=== PATIENT | female | born 1975 | race Caucasian/White ===

== ENCOUNTER 2016-10-11 18:26 | Emergency (ER) | payer OTHER ==
[2016-10-11 18:51] VITALS: BP 119/69; PULSE 80; TEMP 97.6; BMI 21.2
[2016-10-11 20:34] LABS: URINE APPEARANCE CLEAR; URINE BILIRUBIN NEGATIVE (NEGATIVE); URINE COLOR LTYELLOW; URINE GLUCOSE (UA) NEGATIVE (NEGATIVE); URINE KETONE NEGATIVE (NEGATIVE); URINE LEUK ESTERASE NEGATIVE (NEGATIVE); URINE NITRITE POSITIVE (NEGATIVE); URINE PROTEIN NEGATIVE (NEGATIVE); URINE UROBILINOGEN NEGATIVE E.U./dl (0.2-1.0)
[2016-10-11 20:37] LABS: URINE BLOOD 1+ (NEGATIVE)
[2016-10-11 20:38] LABS: URINE BACTERIA RARE /hpf (NONE SEEN); URINE HYALINE CAST 1 /lpf; URINE MUCUS RARE; URINE RBC <1 /hpf (0-3); URINE WBC 3 /hpf (3-5)
[2016-10-11] MEDS ORDERED: ONDANSETRON *ODT* 4 MG TABLET SL ONE (20:47)
[2016-10-11] MEDS ORDERED: ONDANSETRON *ODT* 4 MG TABLET ONE (20:55)
== END 2016-10-11 21:06 | disposition left against medical advice (07) ==
LOC: JER 18:26
DX: Z53.21 Procedure and treatment not carried out due to patient leaving prior to being seen by health care provider (principal)
CPT/HCPCS: 81003; 81015; 84703; 99281-25

== ENCOUNTER 2016-11-04 09:09 | Emergency (ER) | payer OTHER ==
[2016-11-04 09:17] VITALS: BP 101/51; PULSE 85; TEMP 97.9; BMI 21.2
[2016-11-04] MEDS ORDERED: CYCLOBENZAPRINE HCL 10 MG TABLET (FP) PO ONE (09:40)
--- NOTE | 2016-11-04 09:46 | PDOC ---
History of Present Illness - General Chief Complaint: Chronic pain Stated Complaint: PAIN/ LT SHOULDER, NECK, MIGRAINES Time Seen by Provider: 11/04/16 09:37 History Source: Patient Exam Limitations: No Limitations - History of Present Illness Initial Comments: 11/04/16 09:41 41 yr female with chronic pain , left shoulder, migraines. Pt states she has chronic pain to left shoulder with tendonitis to her left shoulder and ran out of tramadol. Pt also c/o stiff neck. no fever no chest pain or back pain . Pt also c/o chronic migraine headache that is causing nausea today from the pain in her shoulder. no vomiting. 11/04/16 10:02 Occurred: reports: other (chronic pain left shoulder ) Severity: reports: moderate Upper Extremity Pain Location: left: shoulder Extremity Pain Location - Extremity Pain Location Extremity Pain Locations: left: other (shoulder) Past History - Past Medical History Allergies/Adverse Reactions: Allergies Allergy/AdvReac Type Severity Reaction Status Date / Time amoxicillin Allergy Mild Hives Verified 11/04/16 09:12 ibuprofen [From Motrin IB] Allergy Mild Hives Verified 11/04/16 09:12 morphine AdvReac Mild nausea/vomi Verified 11/04/16 09:12 ting codeine phosphate AdvReac gi upset Verified 11/04/16 09:12 [From Tylenol-Codeine] seafood Allergy Uncoded 11/04/16 09:12 Home Medications: Ambulatory Orders Citalopram Hydrobromide [Celexa -] 40 mg PO DAILY 10/04/14 Risperidone [Risperdal] 2 mg PO DAILY 10/04/14 Zolpidem Tartrate [Ambien] 5 mg PO HS PRN 10/04/14 Phenytoin Na Extended [Dilantin -] 100 mg PO TID 02/07/16 Alprazolam [Xanax] 2 mg PO BID 07/30/16 Omeprazole 40 mg PO DAILY 07/30/16 Cyclobenzaprine HCl [Flexeril -] 5 mg PO TID PRN #21 tablet 11/04/16 COPD: Yes GI Disorders: Yes (ulcer) HTN: No Psychiatric Problems: Yes (Bi-Polar,ANXIETY) Suicide Attempt (Hx): No Seizures: Yes - Surgical History Cholecystectomy: Yes - Immunization History Td Vaccination: Yes Immunization Up to Date: Yes - Psycho/Social/Smoking Cessation Hx Anxiety: No Suicidal Ideation: No Smoking Status: Yes Smoking History: Current every day smoker Years of Tobacco Use: 20 Have you smoked in the past 12 months: Yes Number of Cigarettes Smoked Daily: 20 Cigars Per Day: 0 Information on smoking cessation initiated: No 'Breaking Loose' booklet given: 10/11/16 Hx Alcohol Use: No Drug/Substance Use Hx: No Substance Use Type: None Hx Substance Use Treatment: No Review of Systems - Review of Systems Able to Perform ROS?: Yes Is the patient limited Urdu proficient: No Constitutional: No: Symptoms Reported HEENTM: Yes: Symptoms Reported, See HPI, Other (photphobia) Respiratory: No: Symptoms reported Cardiac (ROS): No: Symptoms Reported ABD/GI: No: Symptoms Reported : No: Symptoms Reported Musculoskeletal: Yes: See HPI Neurological: Yes: See HPI, Headache *Physical Exam - Vital Signs Last Vital Signs Temp Pulse Resp BP Pulse Ox 97.9 F 85 18 101/51 100 11/04/16 09:12 11/04/16 09:12 11/04/16 09:12 11/04/16 09:12 11/04/16 09:12 - Physical Exam General Appearance: Yes: Nourished, Appropriately Dressed HEENT: positive: EOMI, SILVIO, Normal ENT Inspection, TMs Normal, Pharynx Normal Neck: positive: Supple Respiratory/Chest: positive: Lungs Clear, Normal Breath Sounds Cardiovascular: positive: Regular Rhythm, Regular Rate Gastrointestinal/Abdominal: positive: Normal Bowel Sounds, Soft Musculoskeletal: positive: Normal Inspection, Muscle Spasm (laterally left side neck ). negative: Decreased Range of Motion Extremity: positive: Normal Capillary Refill, Normal Inspection, Other (limited ROM left shoudler due to pain, no bony tenderness, no crepitus or swelling, TTP anterior left shoulder at clavicular notch ) Integumentary: positive: Normal Color, Dry, Warm Neurologic: positive: Fully Oriented, Alert, Normal Mood/Affect, Normal Response , Motor Strength 5/5 Medical Decision Making - Medical Decision Making 11/04/16 09:44 cc: chronic left shoulder pain. chronic tendonitis left shoulder , history of migraines, current headache with nausea will give flexeril and reglan (for headache)follow up with your PMD for further eval of headaches refer to the ortho clinic at [facility] for chronic shoulder pain (pt has history of substance abuse (per old EMR. 11/04/16 10:02 pt agrees with plan of care, pt stable comfortable drinking can of Pepsi cola on discharge, no distress, steady gait. 11/04/16 15:04 11/04/16 15:05 *DC/Admit/Observation/Transfer Diagnosis at time of Disposition: Muscle spasm Shoulder pain, left Qualifiers: Chronicity: chronic Qualified Code(s): M25.512 - Pain in left shoulder Headache Qualifiers: Headache type: tension-type Headache chronicity pattern: chronic headache Intractability: not intractable Qualified Code(s): G44.229 - Chronic tension- type headache, not intractable - Discharge Dispostion Disposition: HOME Condition at time of disposition: Good - Prescriptions Prescriptions: Cyclobenzaprine HCl [Flexeril -] 5 mg PO TID PRN #21 tablet PRN Reason: Muscle Spasms - Referrals Referrals: Marta Urrutia [Primary Care Provider] - - Patient Instructions Additional Instructions: take flexeril as directed for muscle spasm with tylenol together for pain follow with the orthopedic clinic at [facility] for follow up BARRERA ([phone]) take flexeril as directed for muscle spasm apply warm compresses to the area of pain go home and rest in dark room quite room drink at least 2 liters of water daily to help with headaches follow with your doctor [phone] ([phone])
[2016-11-04] MEDS ORDERED: METOCLOPRAMIDE HCL 10 MG TABLET (FP) PO ONE ×2 (09:56→10:01)
[2016-11-04] MEDS ORDERED: CYCLOBENZAPRINE HCL 10 MG TABLET (FP) ONE (10:01)
== END 2016-11-04 10:09 | disposition home or self-care (01) ==
LOC: JERFT 09:09
DX: M62.838 Other muscle spasm (principal); M25.512 Pain in left shoulder; G44.229 Chronic tension-type headache, not intractable; J44.9 Chronic obstructive pulmonary disease, unspecified; F31.9 Bipolar disorder, unspecified; F41.9 Anxiety disorder, unspecified; F17.210 Nicotine dependence, cigarettes, uncomplicated
CPT/HCPCS: 99281-25

== ENCOUNTER 2017-03-11 18:18 | Emergency (ER) | payer OTHER ==
[2017-03-11 18:23] VITALS: BMI 22.3
[2017-03-11] MEDS ORDERED: SUCRALFATE 1 GM TABLET (FP) PO STA (20:03)
[2017-03-11] MEDS ORDERED: ONDANSETRON *ODT* 4 MG TABLET SL ONE (20:03)
--- NOTE | 2017-03-11 20:03 | PDOC ---
History of Present Illness - General History Source: Patient <Candido Zuniga - Last Filed: 03/11/17 20:41> - General History Source: Patient Exam Limitations: No Limitations - History of Present Illness Initial Comments: 03/11/17 20:56 The patient is a 41 year old female, with a significant past medical history of peptic ulcer disease, hypertension, COPD, seizures, bipolar disorder, and anxiety, who presents to the emergency department complaining of epigastric pain for approximately 2 days. She reports her pain is constant and nonradiating in natures. She states the pain is similar to the peptic ulcer pain she has had in the past. She reports she has been taking Omeprazole with no relief. She reports associated nausea, but no vomiting, diarrhea, or constipation. She denies any fever or chills. She denies any dysuria, hematuria , frequency, or urgency. She denies any chest pain, shortness of breath, diaphoresis, or palpitations. Allergies: Amoxicillin, Morphine, Ibuprofen, Codeine Phosphate, Seafood Past Surgical History: Cholecystectomy Social History: Current everyday smoker. Denies alcohol or drug use. PCP: Dr. Marta Urrutia <Margie Singer - Last Filed: 03/11/17 20:57> - General Chief Complaint: Pain, Acute Stated Complaint: NAUSEA/VOMITING Time Seen by Provider: 03/11/17 19:55 Past History - Past Medical History COPD: Yes GI Disorders: Yes (ulcer) HTN: No Psychiatric Problems: Yes (Bi-Polar,ANXIETY) Suicide Attempt (Hx): No Seizures: Yes - Surgical History Abdominal Surgery: Yes Cholecystectomy: Yes - Immunization History Td Vaccination: Yes Immunization Up to Date: Yes - Psycho/Social/Smoking Cessation Hx Anxiety: Yes Suicidal Ideation: No Smoking Status: Yes Smoking History: Current every day smoker Years of Tobacco Use: 20 Have you smoked in the past 12 months: Yes Number of Cigarettes Smoked Daily: 20 Cigars Per Day: 0 Information on smoking cessation initiated: No 'Breaking Loose' booklet given: 10/11/16 Hx Alcohol Use: No Drug/Substance Use Hx: No Substance Use Type: None Hx Substance Use Treatment: No <Candido Zuniga - Last Filed: 03/11/17 20:41> <Margie Singer - Last Filed: 03/11/17 20:57> - Past Medical History Allergies/Adverse Reactions: Allergies Allergy/AdvReac Type Severity Reaction Status Date / Time amoxicillin Allergy Mild Hives Verified 03/11/17 18:21 ibuprofen [From Motrin IB] Allergy Mild Hives Verified 03/11/17 18:21 morphine AdvReac Mild nausea/vomi Verified 03/11/17 18:21 ting codeine phosphate AdvReac gi upset Verified 03/11/17 18:21 [From Tylenol-Codeine] seafood Allergy Uncoded 03/11/17 18:21 Home Medications: Ambulatory Orders Citalopram Hydrobromide [Celexa -] 40 mg PO DAILY 10/04/14 Risperidone [Risperdal] 2 mg PO DAILY 10/04/14 Zolpidem Tartrate [Ambien] 5 mg PO HS PRN 10/04/14 Phenytoin Na Extended [Dilantin -] 100 mg PO TID 02/07/16 Alprazolam [Xanax] 2 mg PO BID 07/30/16 Omeprazole 40 mg PO DAILY 07/30/16 Cyclobenzaprine HCl [Flexeril -] 5 mg PO TID PRN #21 tablet 11/04/16 Ondansetron [Zofran *Odt*] 4 mg SL TID #30 od.tablet 03/11/17 Sucralfate [Carafate -] 1 gm PO QID #60 tablet 03/11/17 Review of Systems - Review of Systems Able to Perform ROS?: Yes Comments:: 03/11/17 20:56 CONSTITUTIONAL: Absent: fever, no chills, no fatigue EYES: Absent: visual changes ENT: Absent: ear pain, no sore throat CARDIOVASCULAR: Absent: chest pain, no palpitations RESPIRATORY: Absent: cough, no SOB GI: Present: +Epigastric pain, +nausea Absent: no vomiting, no constipation, no diarrhea GENITOURINARY: Absent: dysuria, no frequency, no hematuria MUSCULOSKELETAL: Absent: back pain, no arthralgia, no myalgia SKIN: Absent: rash NEURO: Absent: headache <Singer,Giomilsy - Last Filed: 03/11/17 20:57> *Physical Exam - Vital Signs Last Vital Signs Temp Pulse Resp BP Pulse Ox 97.6 F 100 H 20 115/93 100 03/11/17 18:20 03/11/17 18:20 03/11/17 18:20 03/11/17 18:20 03/11/17 18:20 <Candido Zuniga - Last Filed: 03/11/17 20:41> - Vital Signs Last Vital Signs Temp Pulse Resp BP Pulse Ox 97.6 F 100 H 20 115/93 100 03/11/17 18:20 03/11/17 18:20 03/11/17 18:20 03/11/17 18:20 03/11/17 18:20 - Physical Exam Comments: 03/11/17 20:57 GENERAL: Well-appearing, well-nourished. No apparent distress. HEENT: Normocephalic, atraumatic. PERRL, EOM intact. CARDIOVASCULAR: Normal S1, S2. Regular rate and rhythm. PULMONARY: Clear to auscultation bilaterally. ABDOMEN: Mild Epigastric tenderness. Soft, non-distended. EXTREMITIES: Normal ROM in all four extremities. No gross deformities. SKIN: Warm, dry. No rash NEUROLOGICAL: No focal neurological deficits. <Margie Singer - Last Filed: 03/11/17 20:57> ED Treatment Course - Medications Given in the ED: ED Medications Discontinued Medications Generic Name Dose Route Start Last Admin Trade Name Freq PRN Reason Stop Dose Admin Ondansetron HCl 4 mg 03/11/17 20:03 03/11/17 20:11 Zofran Odt - SL 03/11/17 20:04 4 mg ONCE ONE Administration Sucralfate 1 gm 03/11/17 20:03 03/11/17 20:11 Carafate - PO 03/11/17 20:04 1 gm BID STA Administration <Margie Singer - Last Filed: 03/11/17 20:57> Medical Decision Making - Medical Decision Making 03/11/17 20:40 Dr. Zuniga: The scribe's documentation has been prepared under my direction and personally reviewed by me in its entirery. I confirm that the note above accurately reflects all work, treatment, procedures, and medical decision making performed by me. <Candido Zuniga - Last Filed: 03/11/17 20:41> *DC/Admit/Observation/Transfer - Discharge Dispostion Admit: No <Candido Zuniga - Last Filed: 03/11/17 20:41> - Attestations Scribe Attestion: 03/11/17 20:57 Documentation prepared by Margie Singer, acting as medical office rep for Candido Zuniga DO. <Margie Singer - Last Filed: 03/11/17 20:57> Diagnosis at time of Disposition: Epigastric abdominal pain, PUD (peptic ulcer disease) - Discharge Dispostion Disposition: HOME Condition at time of disposition: Stable - Prescriptions Prescriptions: Sucralfate [Carafate -] 1 gm PO QID #60 tablet Ondansetron [Zofran *Odt*] 4 mg SL TID #30 od.tablet - Referrals Referrals: Marta Urrutia [Primary Care Provider] - Philip Temple MD [Staff Physician] - - Patient Instructions Printed Discharge Instructions: DI for Peptic Ulcer
[2017-03-11] MEDS ORDERED: ONDANSETRON *ODT* 4 MG TABLET ONE (20:09)
[2017-03-11] MEDS ORDERED: SUCRALFATE 1 GM TABLET (FP) ONE (20:09)
[2017-03-11] MEDS: MAG HYDROX/AL HYDROX/SIMETH 30 ML UNIT-DOSE CUP PO ONE ×2 (20:40→21:15)
[2017-03-11 23:00] VITALS: BP 120/87; PULSE 96; TEMP 97.8
== END 2017-03-11 21:00 | disposition home or self-care (01) ==
LOC: JER 18:18 → SUPCPDRO 18:18 → JER 21:00
DX: K27.9 Peptic ulcer, site unspecified, unspecified as acute or chronic, without hemorrhage or perforation (principal); I10 Essential (primary) hypertension; J44.9 Chronic obstructive pulmonary disease, unspecified; G40.909 Epilepsy, unspecified, not intractable, without status epilepticus; F31.9 Bipolar disorder, unspecified; F41.9 Anxiety disorder, unspecified
CPT/HCPCS: 99282-25

== ENCOUNTER 2018-07-26 01:14 | Emergency (ER) | payer OTHER ==
[2018-07-26] MEDS ORDERED: ACETAMINOPHEN 325 MG TABLET (FP) PO ONE (01:45)
[2018-07-26] MEDS ORDERED: ALBUTEROL SO4 2.5/IPRATROPIUM 0.5 INH SOL 3 ML VIAL.NEB. NEB ONE ×2 (01:45→02:18)
[2018-07-26 01:53] VITALS: BP 118/82; PULSE 85; TEMP 98.1; BMI 24.7
--- NOTE | 2018-07-26 01:59 | PDOC ---
History of Present Illness - General Chief Complaint: Cold Symptoms Stated Complaint: PRODUCTIVE COUGH Time Seen by Provider: 07/26/18 01:31 History Source: Patient Exam Limitations: No Limitations - History of Present Illness Initial Comments: 07/26/18 01:53 Patient is a 42F with history of COPD, bipolar disorder, seizures, here today complaining of cough with white productive sputum for the past day. Denies fevers, chills. Endorses sore throat. Denies chest pain, nausea, vomiting. Denies leg swelling, abdominal pain. No sick contacts. No flu shot this year. No history of intubation or hospitalization for COPD. Past History - Past Medical History Allergies/Adverse Reactions: Allergies Allergy/AdvReac Type Severity Reaction Status Date / Time amoxicillin Allergy Mild Hives Verified 07/26/18 01:53 ibuprofen [From Motrin IB] Allergy Mild Hives Verified 07/26/18 01:53 morphine AdvReac Mild nausea/vomi Verified 07/26/18 01:53 ting codeine phosphate AdvReac gi upset Verified 07/26/18 01:53 [From Tylenol-Codeine] seafood Allergy Uncoded 07/26/18 01:53 Home Medications: Ambulatory Orders Citalopram Hydrobromide [Celexa -] 40 mg PO DAILY 10/04/14 Risperidone [Risperdal] 2 mg PO DAILY 10/04/14 Zolpidem Tartrate [Ambien] 5 mg PO HS PRN 10/04/14 Phenytoin Na Extended [Dilantin -] 100 mg PO TID 02/07/16 Omeprazole 40 mg PO DAILY 07/30/16 Cyclobenzaprine HCl [Flexeril -] 5 mg PO TID PRN #21 tablet 11/04/16 Acetaminophen/Caffeine/Butalb [Fioricet -] 1 tab PO Q6H 06/27/17 Aspirin/Acetaminophen/Caffeine [Excedrin Migraine Caplet] 1 each PO ASDIR Metoprolol Tartrate 25 mg PO DAILY 08/21/17 Prednisone [Prednisone 50 MG TABLETS] 50 mg PO DAILY #5 tablet 07/26/18 COPD: Yes GI Disorders: Yes (ulcer) HTN: No Psychiatric Problems: Yes (Bi-Polar,ANXIETY) Seizures: Yes - Surgical History Abdominal Surgery: Yes Cholecystectomy: Yes - Immunization History Td Vaccination: Yes Immunization Up to Date: Yes - Suicide/Smoking/Psychosocial Hx Smoking Status: Yes Smoking History: Current every day smoker Years of Tobacco Use: 20 Have you smoked in the past 12 months: Yes Number of Cigarettes Smoked Daily: 20 Cigars Per Day: 0 'Breaking Loose' booklet given: 10/11/16 Hx Alcohol Use: No Drug/Substance Use Hx: No Substance Use Type: None Hx Substance Use Treatment: No Review of Systems - Review of Systems Comments:: 07/26/18 01:59 GENERAL/CONSTITUTIONAL: No fever or chills. No weakness. HEAD, EYES, EARS, NOSE AND THROAT: No change in vision. No ear pain or discharge. No sore throat. CARDIOVASCULAR: No chest pain or shortness of breath RESPIRATORY:+cough, no wheezing, or hemoptysis. GASTROINTESTINAL: No nausea, vomiting, diarrhea or constipation. GENITOURINARY: No dysuria, frequency, or change in urination. MUSCULOSKELETAL: No joint or muscle swelling or pain. No neck or back pain. SKIN: No rash NEUROLOGIC: No headache, vertigo, loss of consciousness, or change in strength/ sensation. ENDOCRINE: No increased thirst. No abnormal weight change HEMATOLOGIC/LYMPHATIC: No anemia, easy bleeding, or history of blood clots. ALLERGIC/IMMUNOLOGIC: No hives or skin allergy. *Physical Exam - Physical Exam Comments: 07/26/18 01:59 GENERAL: Awake, alert, and fully oriented, in no acute distress HEAD: No signs of trauma, normocephalic, atraumatic EYES: PERRLA, EOMI, sclera anicteric, conjunctiva clear ENT: Auricles normal inspection, hearing grossly normal, nares patent, oropharynx erythematous without exudate. NECK: Normal ROM, supple, no lymphadenopathy, JVD, or masses LUNGS: No distress, speaks full sentences, scattered wheezes bilaterally HEART: Regular rate and rhythm, normal S1 and S2, no murmurs, rubs or gallops, peripheral pulses normal and equal bilaterally. ABDOMEN: Soft, nontender, normoactive bowel sounds. No guarding, no rebound. No masses EXTREMITIES: Normal inspection, Normal range of motion, no edema. No clubbing or cyanosis. NEUROLOGICAL: Cranial nerves II through XII grossly intact. Normal speech, normal gait, no focal sensorimotor deficits SKIN: Warm, Dry, normal turgor, no rashes or lesions noted. ED Treatment Course - RADIOLOGY Radiology Studies Ordered: Category Date Time Status CHEST PA & LAT [RAD] Stat Radiology 07/26/18 01:45 Ordered Medical Decision Making - Medical Decision Making 07/26/18 02:00 Patient is 42F with history of COPD, bipolar disorder, and seizures here today with cough. Vitals normal and stable. DDx includes, but is not limited to: viral pharyngitis, COPD exacerbation, pneumonia. Patient appears well but is coughing. Strep considered, not likely given symptomology and age of patient. Flu considered, not likely without fever, bodyaches. Will evaluate with cxr. Will treat with prednisone, duoneb, tylenol. Likely discharge home. 07/26/18 02:47 CXR clear. Will discharge home with return precautions. Improved after duoneb. *DC/Admit/Observation/Transfer Diagnosis at time of Disposition: URI (upper respiratory infection), COPD exacerbation - Discharge Dispostion Disposition: HOME Condition at time of disposition: Good - Prescriptions Prescriptions: Prednisone [Prednisone 50 MG TABLETS] 50 mg PO DAILY #5 tablet - Referrals Referrals: Duke Doss [Primary Care Provider] - - Patient Instructions Printed Discharge Instructions: DI for Chronic Obstructive Pulmonary Disease, DI for Viral Upper Respiratory Infection -- Adult, Smoking Cessation Additional Instructions: Please call your primary care doctor tomorrow to setup an appointment. Please return if you have any new, worsening or concerning symptoms, especially fever, chills, and increasing shortness of breath. - Post Discharge Activity
[2018-07-26] MEDS ORDERED: predniSONE 20 MG TABLET (UD) ONE (02:17)
[2018-07-26] MEDS ORDERED: ACETAMINOPHEN 325 MG TABLET (FP) ONE (02:17)
[2018-07-26] MEDS ORDERED: predniSONE 10 MG TABLET (UD) ONE (02:18)
[2018-07-26] MEDS ORDERED: predniSONE 20 MG TABLET (UD) PO ONE (02:20)
[2018-07-26] MEDS ORDERED: ONDANSETRON *ODT* 4 MG TABLET SL ONE (02:23)
[2018-07-26] MEDS ORDERED: ONDANSETRON *ODT* 4 MG TABLET ONE (02:29)
--- NOTE | 2018-07-26 02:58 | PDOC ---
Attending Attestation - Resident Resident Name: Hank Ho - ED Attending Attestation I have performed the following: I have examined & evaluated the patient, The case was reviewed & discussed with the resident, I agree w/resident's findings & plan - HPI HPI: 07/26/18 02:56 42 YOF with GERD and COPD, current smoker presenting with nasal congestion, productive white cough x 1 day. no sick contacts or travel. uses albuterol inhaler as needed.. no f/c, cp, ap, n/v/d, woo or dizziness. - Physicial Exam PE: 07/26/18 02:57 NAD, well appearing, MMM, nl conjunctiva, anicteric; neck supple. lungs clear, RRR, abdomen soft nontender. LOMAS x4, no focal neuro deficits. No peripheral edema. normal color for ethnicity, WWP. - Medical Decision Making 07/26/18 02:57 DDx. COPD exacerbation, pneumonia, viral syndrome, URI. Vital signs reviewed, wnl. no respiratory distress. CXR_clear. no infiltrate or edema or effusion ED course: no acute events, remained stable and well appearing. Clinically improved after interventions, including duoneb, steroids. no indication for abx for now, as no cxr findings or systemic findings. smoking cessation advised. albuterol inhaler use Q4-6 hr as needed for cough sx. hydration and saline gargles, humidifier. Dispo: Pt to be discharged in stable condition. Patient made aware of impression and plan, return precautions discussed (including but not limited to worsening pain or symptoms), fevers, or signs of infection, chest pain, respiratory distress, inability to tolerate oral intake, dehydration, syncope, or neurologic changes). Follow up with PMD as recommended, follow up information provided, take medications as instructed for duration of time. continue with supportive care, avoid triggers and precipitants. All questions answered to patient's satisfaction and expressed understanding and comfort with this. 07/26/18 05:03
[2018-07-26] MEDS ORDERED: predniSONE 20 MG TABLET (UD) PO SCH (10:00)
== END 2018-07-26 03:04 | disposition home or self-care (01) ==
LOC: JER 01:14
PROC: 3E0F7GC Introduction of Other Therapeutic Substance into Respiratory Tract, Via Natural or Artificial Opening (ICD-10-PCS; principal; 2018-07-26)
DX: J44.1 Chronic obstructive pulmonary disease with (acute) exacerbation (principal); J06.9 Acute upper respiratory infection, unspecified; F41.9 Anxiety disorder, unspecified; F31.9 Bipolar disorder, unspecified; G40.909 Epilepsy, unspecified, not intractable, without status epilepticus; F17.210 Nicotine dependence, cigarettes, uncomplicated
CPT/HCPCS: 71046-TC-FY; 94640; 99281-25; Q0162

== ENCOUNTER 2018-07-26 21:30 | Emergency (ER) | payer OTHER ==
--- NOTE | 2018-07-26 22:04 | PDOC ---
History of Present Illness - General History Source: Patient Exam Limitations: No Limitations - History of Present Illness Initial Comments: 07/26/18 23:03 The patient is a 42 year old female brought in by EMS with a past medical history of COPD, seizure, ulcer, and bipolar disorder who presents to the emergency department for evaluation of dizziness and coughing. Patient reports feeling dizzy after standing up to put her pants on which prompted her to activate EMS. She reports associated symptoms of chest pain, palpitations persistent cough, worsening headache, and 3 episodes of emesis over the course of the day. Of note, the patient had her last breathing treatment 3 hours ago and was saturating on 100% room air. The patient was evaluated in the emergency department yesterday for COPD exacerbation and had a chest x-ray which showed no infiltrates. Patient was prescribed Prednisone which she picked up today. She states after her d/c she made an appointment to see her PCP this Wednesday. The patient denies dizziness, fevers, chills, nausea, diarrhea, constipation, and any urinary issues. Allergies: amoxicillin, ibuprofen, morphine, codeine Social History: Current everyday smoker. No reported alcohol or drug use. Surgical History: Cholecystectomy PCP: Dr. Duke Doss <Chantelle Del Toro - Last Filed: 07/26/18 23:03> <Sharri Mckinney - Last Filed: 07/27/18 01:39> - General Chief Complaint: Cold Symptoms Stated Complaint: COUGH Time Seen by Provider: 07/26/18 22:03 Past History <Chantelle Del Toro - Last Filed: 07/26/18 23:03> - Past Medical History COPD: Yes GI Disorders: Yes (ulcer) HTN: No Psychiatric Problems: Yes (Bi-Polar,ANXIETY) Seizures: Yes - Surgical History Abdominal Surgery: Yes Cholecystectomy: Yes - Immunization History Td Vaccination: Yes Immunization Up to Date: Yes - Suicide/Smoking/Psychosocial Hx Smoking Status: Yes Smoking History: Current every day smoker Years of Tobacco Use: 20 Have you smoked in the past 12 months: Yes Number of Cigarettes Smoked Daily: 20 Cigars Per Day: 0 'Breaking Loose' booklet given: 10/11/16 Hx Alcohol Use: No Drug/Substance Use Hx: No Substance Use Type: None Hx Substance Use Treatment: No <Sharri Mckinney - Last Filed: 07/27/18 01:39> - Past Medical History Allergies/Adverse Reactions: Allergies Allergy/AdvReac Type Severity Reaction Status Date / Time amoxicillin Allergy Mild Hives Verified 07/26/18 23:05 ibuprofen [From Motrin IB] Allergy Mild Hives Verified 07/26/18 23:05 morphine AdvReac Mild nausea/vomi Verified 07/26/18 23:05 ting codeine phosphate AdvReac gi upset Verified 07/26/18 23:05 [From Tylenol-Codeine] seafood Allergy Uncoded 07/26/18 23:05 Home Medications: Ambulatory Orders Citalopram Hydrobromide [Celexa -] 40 mg PO DAILY 10/04/14 Risperidone [Risperdal] 2 mg PO DAILY 10/04/14 Zolpidem Tartrate [Ambien] 5 mg PO HS PRN 10/04/14 Phenytoin Na Extended [Dilantin -] 100 mg PO TID 02/07/16 Omeprazole 40 mg PO DAILY 07/30/16 Cyclobenzaprine HCl [Flexeril -] 5 mg PO TID PRN #21 tablet 11/04/16 Acetaminophen/Caffeine/Butalb [Fioricet -] 1 tab PO Q6H 06/27/17 Aspirin/Acetaminophen/Caffeine [Excedrin Migraine Caplet] 1 each PO ASDIR Metoprolol Tartrate 25 mg PO DAILY 08/21/17 Prednisone [Prednisone 50 MG TABLETS] 50 mg PO DAILY #5 tablet 07/26/18 Review of Systems - Review of Systems Able to Perform ROS?: Yes Comments:: CONSTITUTIONAL: Absent: fever, chills, diaphoresis, generalized weakness, malaise, loss of appetite HEENT: Absent: rhinorrhea, nasal congestion, throat pain, throat swelling, difficulty swallowing, mouth swelling, ear pain, eye pain, visual Changes CARDIOVASCULAR: (+)chest pain. (+)palpitations. (+)dizziness. Absent: chest pain, syncope, irregular heart rate, peripheral edema RESPIRATORY: (+)cough. Absent: shortness of breath, dyspnea with exertion, orthopnea, wheezing, stridor , hemoptysis GASTROINTESTINAL: Absent: abdominal pain, abdominal distension, nausea, vomiting, diarrhea, constipation, melena, hematochezia GENITOURINARY: Absent: dysuria, frequency, urgency, hesitancy, hematuria, flank pain, genital pain MUSCULOSKELETAL: Absent: myalgia, arthralgia, joint swelling SKIN: Absent: rash, itching, pallor HEMATOLOGIC/IMMUNOLOGIC: Absent: easy bleeding, easy bruising, lymphadenopathy, frequent infections ENDOCRINE: Absent: unexplained weight gain, unexplained weight loss, heat intolerance, cold intolerance NEUROLOGIC: (+)headache Absent: focal weakness or paresthesias, dizziness, unsteady gait, seizure, mental status changes, bladder or bowel incontinence PSYCHIATRIC: Absent: anxiety, depression, suicidal or homicidal ideation, hallucinations. <Chantelle Del Toro - Last Filed: 07/26/18 23:03> *Physical Exam - Vital Signs Last Vital Signs Temp Pulse Resp BP Pulse Ox 98.4 F 87 20 120/70 100 07/26/18 22:20 07/26/18 22:20 07/26/18 22:20 07/26/18 22:20 07/26/18 22:20 - Physical Exam Comments: GENERAL: (+)Anxious and tearful. HEENT: Normocephalic, atraumatic. PERRLA, EOMI. No conjunctival pallor. Sclera are non- icteric. Moist mucous membranes. Oropharynx is clear. NECK: Supple. Full ROM. No JVD. Carotid pulses 2+ and symmetric, without bruits. No thyromegaly. No lymphadenopathy. CARDIOVASCULAR: Regular rate and rhythm. No murmurs, rubs, or gallops. PULMONARY: (+)Scant wheeze, good air movement in lung mao ABDOMINAL: Flat. Non-tender. No rebound or guarding. No organomegaly. Normoactive bowel sounds. MUSCULOSKELETAL Normal range of motion at all joints. No bony deformities or tenderness. No CVA tenderness. EXTREMITIES: No cyanosis. No clubbing. No edema. No calf tenderness. SKIN: Warm and dry. Normal capillary refill. No rashes. No jaundice. NEUROLOGICAL: Alert, awake, appropriate. Cranial nerves 2-12 intact. No deficits to light touch and temperature in face, upper extremities and lower extremities. No motor deficits in the in face, upper extremities and lower extremities. Normoreflexic in the upper and lower extremities. Normal speech. Toes are down- going bilaterally. Gait is normal without ataxia. PSYCHIATRIC: (+)Anxious. <Chantelle Del Toro - Last Filed: 07/26/18 23:03> ED Treatment Course - Medications Given in the ED: ED Medications Discontinued Medications Generic Name Dose Route Start Last Admin Trade Name Franchesca PRN Reason Stop Dose Admin Acetaminophen 650 mg 07/26/18 22:35 07/26/18 22:58 Tylenol - PO 07/26/18 22:36 650 mg ONCE ONE Administration Guaifenesin 10 ml 07/26/18 22:35 07/26/18 22:58 Robitussin - PO 07/26/18 22:36 10 ml ONCE ONE Administration Ondansetron HCl 4 mg 07/26/18 22:35 07/26/18 22:59 Zofran Injection IVPUSH 07/26/18 22:36 4 mg ONCE ONE Administration <Chantelle Del Toro - Last Filed: 07/26/18 23:03> - LABORATORY CBC & Chemistry Diagram: 07/26/18 22:50 07/26/18 22:50 <Sharri Mckinney - Last Filed: 07/27/18 01:39> Medical Decision Making - Medical Decision Making 07/26/18 23:50 42-year-old female presents tonight with multiple complaints. Patient was seen last evening in this emergency department for coughing and had a chest x-ray that was essentially negative. She was treated for a COPD exacerbation and a prescription for prednisone was sent to her [place] pharmacy. She did call her Dr. Duke Doss and has an appointment to see him this Wednesday. The patient said that this is an anniversary of her mother's , she said that she has migraines and her migraines have been bothering her today. She took Fioricet for her migraine. She also states she felt dizzy when she stood up to get dressed, the cough has persisted, she said she vomited 3 times and she had palpitations She is in no acute respiratory distress. Pulse ox is 100% on room air. She has a benign abdominal exam. She's had no further vomiting while in the emergency department 07/27/18 00:26 07/27/18 00:26 in reviewing her labs ,she does have a leukocytosis which I feel is due to her steroid use yesterday and today 07/27/18 01:34 Patient's migraine went away with Reglan and Benadryl. Her lungs are clear to auscultation. She has a benign abdominal exam and has no nausea at this time or any abdominal pain. Impression recurrent migraines, COPD with Tachycardia and Anxiety <Sharri Mckinney - Last Filed: 07/27/18 01:39> *DC/Admit/Observation/Transfer - Attestations Scribe Attestion: Documentation prepared by Chantelle Del Toro, acting as medical corps officer for Sharri Mckniney MD. <Chantelle Del Toro - Last Filed: 07/26/18 23:03> <Sharri Mckinney - Last Filed: 07/27/18 01:39> Diagnosis at time of Disposition: Anxiety attack Migraine Qualifiers: Migraine type: without aura Status migrainosus presence: without status migrainosus Intractability: not intractable Qualified Code(s): G43.009 - Migraine without aura, not intractable, without status migrainosus Vomiting Qualifiers: Vomiting type: unspecified Vomiting Intractability: non-intractable Nausea presence: with nausea Qualified Code(s): R11.2 - Nausea with vomiting, unspecified - Discharge Dispostion Disposition: HOME Condition at time of disposition: Stable - Referrals Referrals: Duke Doss [Primary Care Provider] - - Patient Instructions Printed Discharge Instructions: DI for Migraine, DI for Cough -- Adult, DI for Anxiety -- Adult Additional Instructions: please use your medicaitons at home if you have wheezing take your headache medicine as needed Keep your Wednesday appointment with your doctor
[2018-07-26] MEDS ORDERED: ONDANSETRON 4 MG/2 ML VIAL IVPUSH ONE (22:35)
[2018-07-26] MEDS ORDERED: guaiFENesin 200 MG/10 ML 10 ML UNIT-DOSE CUPS PO ONE (22:35)
[2018-07-26] MEDS ORDERED: ACETAMINOPHEN 325 MG TABLET (FP) PO ONE (22:35)
[2018-07-26] MEDS ORDERED: guaiFENesin 200 MG/10 ML 10 ML UNIT-DOSE CUPS ONE (22:41)
[2018-07-26] MEDS ORDERED: ACETAMINOPHEN 325 MG TABLET (FP) ONE (22:41)
[2018-07-26] MEDS ORDERED: ONDANSETRON 4 MG/2 ML VIAL ONE (22:41)
[2018-07-26 23:05] VITALS: BMI 24.7
[2018-07-26 23:16] LABS: BASO % 0.4 % (0-2.0); HEMATOCRIT 35.2 % (32.4-45.2); HEMOGLOBIN 11.6 GM/dL (10.7-15.3); LYMPH % 13.7 % (8-40); MCH 29.7 pg (25.7-33.7); MCHC 32.8 g/dl (32.0-36.0); MEAN CELL VOLUME 90.7 fl (80-96); MEAN PLT VOLUME 7.8 fl (7.5-11.1); MONO % 7.1 % (3.8-10.2); NEUT % 78.8 % (42.8-82.8); PLATELET COUNT 422 K/MM3 (134-434); RBC 3.88 M/mm3 (3.60-5.2); WHITE BLOOD COUNT 14.4 K/mm3 (4.0-10.0)
[2018-07-26 23:43] LABS: ALBUMIN 4.1 g/dl (3.4-5.0); ALK PHOS 114 U/L (45-117); ANION GAP 7 MMOL/L (8-16); BILIRUBIN,TOTAL 0.1 mg/dL (0.2-1); BLOOD UREA NITROGEN 9 mg/dL (7-18); CALCIUM 9.6 mg/dL (8.5-10.1); CHLORIDE 109 mmol/L (98-107); CO2 24 mmol/L (21-32); CREATININE 0.8 mg/dL (0.55-1.3); GLUCOSE,RANDOM 96 mg/dL (74-106); POTASSIUM 3.5 mmol/L (3.5-5.1); SGOT/AST 13 U/L (15-37); SGPT/ALT 14 U/L (13-61); SODIUM 139 mmol/L (136-145); TOT PROT 7.3 g/dl (6.4-8.2)
[2018-07-26] MEDS ORDERED: METOCLOPRAMIDE HCL INJECTION 10 MG/2 ML VIAL IVPUSH ONE (23:53)
[2018-07-27] MEDS ORDERED: METOCLOPRAMIDE HCL INJECTION 10 MG/2 ML VIAL ONE
[2018-07-27 01:47] VITALS: BP 118/60; PULSE 86; TEMP 97.9
--- NOTE | 2018-07-27 15:37 | EKG ---
Test Reason : Blood Pressure : / mmHG Vent. Rate : 090 BPM Atrial Rate : 090 BPM P-R Int : 120 ms QRS Dur : 076 ms QT Int : 362 ms P-R-T Axes : 077 052 054 degrees QTc Int : 442 ms NORMAL SINUS RHYTHM POSSIBLE LEFT ATRIAL ENLARGEMENT BORDERLINE ECG WHEN COMPARED WITH ECG OF 03-OCT-2014 18:52, NO SIGNIFICANT CHANGE WAS FOUND Confirmed by JUAN DAVID SHARP, RANDALL ([id number]) on 07/27/2018 3:37:00 PM Referred By: Confirmed By:RANDALL FALL MD
== END 2018-07-27 01:53 | disposition home or self-care (01) ==
LOC: JER 21:30
PROC: 3E033GC Introduction of Other Therapeutic Substance into Peripheral Vein, Percutaneous Approach (ICD-10-PCS; principal; 2018-07-26)
PROC: 3E033GC Introduction of Other Therapeutic Substance into Peripheral Vein, Percutaneous Approach (ICD-10-PCS; 2018-07-26)
PROC: 3E033GC Introduction of Other Therapeutic Substance into Peripheral Vein, Percutaneous Approach (ICD-10-PCS; 2018-07-26)
DX: G43.009 Migraine without aura, not intractable, without status migrainosus (principal); F41.0 Panic disorder [episodic paroxysmal anxiety]; R11.2 Nausea with vomiting, unspecified; J44.9 Chronic obstructive pulmonary disease, unspecified; G40.909 Epilepsy, unspecified, not intractable, without status epilepticus; F31.9 Bipolar disorder, unspecified; F41.9 Anxiety disorder, unspecified; F17.210 Nicotine dependence, cigarettes, uncomplicated; Z88.0 Allergy status to penicillin; Z88.8 Allergy status to other drugs, medicaments and biological substances; Z91.013 Allergy to seafood
CPT/HCPCS: 36415; 80053; 84484; 85025; 93005; 93010; 96374; 96375; 99282-25

== ENCOUNTER → 2019-12-17 | Emergency (ER) | payer OTHER ==
[~2019-12-17] MED LIST: ACETAMINOPHEN 1000 MG/100 ML VIAL (NON FORMULARY) IVPB ONE; ACETAMINOPHEN INJECTION 100 ML IVPB ONE; CYCLOBENZAPRINE HCL 10 MG TABLET (FP) ONE; FAMOTIDINE 20 MG/50 ML IVPB 20 MG/50 ML MG IVPB ONE; MAG HYDROX/AL HYDROX/SIMETH 30 ML UNIT-DOSE CUP ONE; MAG HYDROX/AL HYDROX/SIMETH 30 ML UNIT-DOSE CUP PO ONE; SODIUM CHLORIDE 1,000 ML IV STA
--- NOTE | 2019-12-17 03:26 | PDOC ---
History of Present Illness - General Stated Complaint: DIARHHEA FOR 3 DAYS History Source: Patient Exam Limitations: No Limitations - History of Present Illness Initial Comments: 12/17/19 03:27 44 yo F with a pmhx of COPD, gastric ulcer (last EGD 2 years ago), bipolar disorder, seizures (currently on dilantin) presents to the emergency department with diarrhea for 3 days with associative abdominal pain in the epigastric region for the past 2 days. Per the patient, she denies recent travel and states she had no recent sick contacts or those with COVID exposure. The pain in the epigastric region is sharp in nature, non radiating, 10/10, constant, and with associative diarrhea but without relieving factors. Endorses worsening pain when she eats. Denies the following: fevers, chills, nausea, vomiting, chest pain, SOB, back pain, dysuria, hematuria, diarrhea, and leg pain/swelling. Allergies: per chart Past History - Past Medical History Allergies/Adverse Reactions: Allergies Allergy/AdvReac Type Severity Reaction Status Date / Time amoxicillin Allergy Mild Hives Verified 07/26/18 23:05 ibuprofen [From Motrin IB] Allergy Mild Hives Verified 07/26/18 23:05 morphine AdvReac Mild nausea/vomi Verified 07/26/18 23:05 ting codeine phosphate AdvReac gi upset Verified 07/26/18 23:05 [From Tylenol-Codeine] seafood Allergy Uncoded 07/26/18 23:05 Home Medications: Ambulatory Orders Citalopram Hydrobromide [Celexa -] 40 mg PO DAILY 10/04/14 Risperidone [Risperdal] 2 mg PO DAILY 10/04/14 Zolpidem Tartrate [Ambien] 5 mg PO HS PRN 10/04/14 Phenytoin Na Extended [Dilantin -] 100 mg PO TID 02/07/16 Omeprazole 40 mg PO DAILY 07/30/16 Cyclobenzaprine HCl [Flexeril -] 5 mg PO TID PRN #21 tablet 11/04/16 Acetaminophen/Caffeine/Butalb [Fioricet -] 1 tab PO Q6H 06/27/17 Aspirin/Acetaminophen/Caffeine [Excedrin Migraine Caplet] 1 each PO ASDIR 06/27/17 Metoprolol Tartrate 25 mg PO DAILY 08/21/17 Prednisone [Prednisone 50 MG TABLETS] 50 mg PO DAILY #5 tablet 07/26/18 COPD: Yes GI Disorders: Yes (ulcer) HTN: No Psychiatric Problems: Yes (Bi-Polar,ANXIETY) Seizures: Yes - Surgical History Abdominal Surgery: Yes Cholecystectomy: Yes - Immunization History Td Vaccination: Yes Immunization Up to Date: Yes - Psycho Social/Smoking Cessation Hx Smoking Status: Yes Smoking History: Current every day smoker Years of Tobacco Use: 20 Have you smoked in the past 12 months: Yes Number of Cigarettes Smoked Daily: 20 Cigars Per Day: 0 'Breaking Loose' booklet given: 10/11/16 Hx Alcohol Use: No Drug/Substance Use Hx: No Substance Use Type: None Hx Substance Use Treatment: No Review of Systems - Review of Systems Able to Perform ROS?: Yes Is the patient limited Malay proficient: No Constitutional: No: Chills, Diaphoresis, Fever, Weakness HEENTM: No: Eye Pain, Ear Pain, Nose Pain, Throat Pain, Mouth Pain Respiratory: No: Cough, Shortness of Breath, Hemoptysis Cardiac (ROS): No: Chest Pain, Lightheadedness, Chest Tightness ABD/GI: Yes: Diarrhea, Abdominal cramping. No: Constipated, Nausea, Rectal Bleeding, Vomiting, Tarry Stools : No: Burning, Hematuria Musculoskeletal: No: Back Pain, Joint Pain, Neck Pain Integumentary: No: Bruising, Erythema, Rash Neurological: No: Headache, Numbness, Tingling, Tremors Psychiatric: No: Change in Appetite Endocrine: No: Unexplained Weight Loss Hematologic/Lymphatic: No: Anemia *Physical Exam - Physical Exam General Appearance: Yes: Nourished, Appropriately Dressed. No: Apparent Distress, Intoxicated HEENT: positive: EOMI, SILVIO, Normal Voice, Symmetrical, Pharynx Normal, Hearing Grossly Normal. negative: Pale Conjunctivae, Scleral Icterus (R), Scleral Icterus (L), Muffled/Hoarse voice, Pharyngeal Erythema, Tonsillar Exudate, Tonsillar Erythema, Nasal Congestion, Rhinorrhea, Sinus Tenderness, Excessive d rooling Neck: positive: Trachea midline, Supple. negative: Tender, Lymphadenopathy (R), Lymphadenopathy (L), Tender lateral, Tender midline Respiratory/Chest: positive: Lungs Clear, Normal Breath Sounds. negative: Chest Tender, Respiratory Distress, Accessory Muscle Use, Crackles, Rales, Rhonchi, Stridor, Wheezing Cardiovascular: positive: Regular Rhythm, S1, S2, Tachycardia. negative: Systolic Murmur Gastrointestinal/Abdominal: positive: Normal Bowel Sounds, Tender (epigastric region), Flat, Soft. negative: Distended, Guarding, Rebound Lymphatic: negative: Adenopathy Musculoskeletal: positive: Normal Inspection. negative: CVA Tenderness, Vertebral Tenderness Extremity: positive: Normal Capillary Refill, Normal Inspection, Normal Range of Motion. negative: Tender, Swelling, Calf Tenderness Integumentary: positive: Normal Color, Dry, Warm. negative: Swelling, Ecchymosis Neurologic: positive: Fully Oriented, Alert, Normal Mood/Affect ED Treatment Course - LABORATORY CBC & Chemistry Diagram: 12/17/19 04:52 12/17/19 04:52 Medical Decision Making - Medical Decision Making 44 yo F with a pmhx of COPD, gastric ulcer (last EGD 2 years ago), bipolar disorder, seizures (currently on dilantin) presents to the emergency department with diarrhea for 3 days with associative abdominal pain in the epigastric region for the past 2 days. Initial vitals: Initial Vital Signs Temp Pulse Resp BP Pulse Ox 98.3 F 114 H 20 130/84 97 12/17/19 03:40 12/17/19 03:40 12/17/19 03:40 12/17/19 03:40 12/17/19 03:40 Work up: patient presents to the emergency department with epigastric pain with diarrhea unlikely to be covid given lack of exposures and symptoms consistent with COVID. The ddx: gastritis vs GERD vs pancreatitis vs PNA vs gastroenteritis vs cholelithiasis/cholecystitis vs colitis vs peptic/duodenal ulcer Laboratory Tests 12/17/19 12/17/19 12/17/19 04:15 04:52 04:52 WBC 12.5 H RBC 4.85 Hgb 15.9 H Hct 47.1 H D MCV 97.1 H MCH 32.8 D MCHC 33.8 RDW 14.6 D Plt Count 384 MPV 7.2 L Absolute Neuts (auto) 8.3 H Neutrophils % 66.3 Lymphocytes % 21.3 D Monocytes % 8.3 Eosinophils % 3.2 D Basophils % 0.9 Nucleated RBC % 0 Sodium 142 Potassium 5.4 H Chloride 110 H Carbon Dioxide 24 Anion Gap 9 BUN 12.7 Creatinine 1.0 Est GFR (CKD-EPI)AfAm 78.24 Est GFR (CKD-EPI)NonAf 67.51 Random Glucose 89 Calcium 9.7 Total Bilirubin 0.2 AST 29 ALT 37 Alkaline Phosphatase 171 H Troponin I < 0.02 Total Protein 7.6 Albumin 4.0 Lipase 115 Serum , Qual Negative slight leukocytosis negative mild hyperkalemia troponin negative Patient to receive CT scan of the abdomen and pelvis due to persistence of abdominal pain despite GI cocktail treatment. Per the patient, her pain is still 10/10. I was alerted by the nurse that the patient wanted to AMA. The patient states she does not want to wait for the EKG or abdomen and pelvis CT because she wants to go home. She states her pain is not well controlled. I asked the patient what she uses for pain analgesia because she is allergic to morphine, opiates, ibuprofen, codeine. The patient received tylenol. She states she will take tylenol at home I explained to the patient it is vital to her health that we proceed with the abdomen and pelvis CT in order to rule out more serious causes of her pain. The patient again stated she wanted to leave to go home and rest. I stated to her that she could have permanent disabilities and possibly given that we do not do this and the patient understood the risks. Prior to the patient being presented with the AMA documents, the patients, per nursing staff, had eloped from the emergency department. Her IV was pulled out by Ady the charge nurse. The patient exited the department before I was able to come back to the patient with AMA forms. Patient eloped. Discharge - Discharge Information Problems reviewed: Yes Clinical Impression/Diagnosis: Gastritis Disposition: HOME - Admission No - Follow up/Referral Referrals: Duke Doss [Primary Care Provider] - - Patient Discharge Instructions - Post Discharge Activity
[2019-12-17 04:05] VITALS: BP 130/84; PULSE 114; TEMP 98.3; BMI 29.2
[2019-12-17 05:07] LABS: BASO % 0.9 % (0-2.0); EOS % 3.2 % (0-4.5); HEMATOCRIT 47.1 % (32.4-45.2); HEMOGLOBIN 15.9 GM/dL (10.7-15.3); LYMPH % 21.3 % (8-40); MCH 32.8 pg (25.7-33.7); MCHC 33.8 g/dl (32.0-36.0); MEAN CELL VOLUME 97.1 fl (80-96); MEAN PLT VOLUME 7.2 fl (7.5-11.1); MONO % 8.3 % (3.8-10.2); NEUT % 66.3 % (42.8-82.8); PLATELET COUNT 384 K/MM3 (134-434); RBC 4.85 M/mm3 (3.60-5.2); RDW 14.6 % (11.6-15.6); WHITE BLOOD COUNT 12.5 K/mm3 (4.0-10.0)
[2019-12-17 06:47] LABS: ALK PHOS 171 U/L (45-117); ANION GAP 9 MMOL/L (8-16); BILIRUBIN,TOTAL 0.2 mg/dL (0.2-1); BLOOD UREA NITROGEN 12.7 mg/dL (7-18); CALCIUM 9.7 mg/dL (8.5-10.1); CHLORIDE 110 mmol/L (98-107); CO2 24 mmol/L (21-32); GLUCOSE,RANDOM 89 mg/dL (74-106); LIPASE 115 U/L (73-393); POTASSIUM 5.4 mmol/L (3.5-5.1); SGOT/AST 29 U/L (15-37); SGPT/ALT 37 U/L (13-61); SODIUM 142 mmol/L (136-145); TOT PROT 7.6 g/dl (6.4-8.2)
== END | disposition home or self-care (01) ==
LOC: JER 02:30
PROC: 3E033GC Introduction of Other Therapeutic Substance into Peripheral Vein, Percutaneous Approach (ICD-10-PCS; principal; 2019-12-17)
PROC: 3E033NZ Introduction of Analgesics, Hypnotics, Sedatives into Peripheral Vein, Percutaneous Approach (ICD-10-PCS; 2019-12-17)
DX: K29.70 Gastritis, unspecified, without bleeding (principal); J44.9 Chronic obstructive pulmonary disease, unspecified; G40.909 Epilepsy, unspecified, not intractable, without status epilepticus; F31.9 Bipolar disorder, unspecified; F41.9 Anxiety disorder, unspecified; F17.210 Nicotine dependence, cigarettes, uncomplicated; Z87.19 Personal history of other diseases of the digestive system; Z88.0 Allergy status to penicillin; Z91.013 Allergy to seafood; Z88.8 Allergy status to other drugs, medicaments and biological substances
CPT/HCPCS: 36415; 80053; 83690; 84484; 84703; 85025; 96365; 96375; 99284-25; J0131; J7030

== ENCOUNTER 2021-03-23 02:04 | Emergency (ER) | payer OTHER ==
[2021-03-23 02:27] VITALS: BP 125/91; TEMP 98.5; BMI 30.1
[2021-03-23] MEDS ORDERED: SODIUM CHLORIDE 0.9% 500 ML INFUS.BAG IV ONE (02:53)
[2021-03-23] MEDS ORDERED: ACETAMINOPHEN 1000 MG/100 ML VIAL (NON FORMULARY) IVPB ONE (02:53)
[2021-03-23] MEDS ORDERED: ACETAMINOPHEN INJECTION 100 ML IVPB ONE (02:58)
[2021-03-23 03:07] LABS: BASO % 0.9 % (0-2.0); EOS % 0.2 % (0-4.5); HEMATOCRIT 48.2 % (32.4-45.2); HEMOGLOBIN 16.7 GM/dL (10.7-15.3); LYMPH % 8.4 % (8-40); MCH 32.2 pg (25.7-33.7); MCHC 34.6 g/dl (32.0-36.0); MEAN CELL VOLUME 93.1 fl (80-96); MEAN PLT VOLUME 7.4 fl (7.5-11.1); MONO % 6.1 % (3.8-10.2); NEUT % 84.4 % (42.8-82.8); PLATELET COUNT 433 10^3/uL (134-434); RBC 5.18 M/mm3 (3.60-5.2); RDW 14.8 % (11.6-15.6); WHITE BLOOD COUNT 22.4 K/mm3 (4.0-10.0)
[2021-03-23 03:29] LABS: CALCIUM 10.2 mg/dL (8.5-10.1)
[2021-03-23 03:30] LABS: ALBUMIN 4.6 g/dl (3.4-5.0); BLOOD UREA NITROGEN 16.6 mg/dL (7-18)
[2021-03-23 03:32] LABS: CREATININE 1.2 mg/dL (0.55-1.3)
[2021-03-23 03:34] LABS: BILIRUBIN,TOTAL 0.3 mg/dL (0.2-1)
[2021-03-23 03:38] LABS: INR 1.12 (0.83-1.09); PROTHROMBIN TIME (PATIENT) 13.5 SEC (9.7-13.0)
[2021-03-23 03:40] LABS: ACTIVATED PTT 30.9 SECONDS (25.2-36.5)
[2021-03-23] MEDS ORDERED: morphine CARPU-JECT 4 MG/1 ML DISP.SYRIN IVPUSH ONE (03:42)
[2021-03-23] MEDS ORDERED: ONDANSETRON 4 MG/2 ML VIAL IVPUSH ONE (03:42)
[2021-03-23] MEDS ORDERED: SODIUM CHLORIDE 1,000 ML IV SCH (03:45)
[2021-03-23] MEDS ORDERED: ONDANSETRON 4 MG/2 ML VIAL ONE (03:54)
[2021-03-23] MEDS ORDERED: HYDROmorphone HCL CARPU-JECT 2 MG/1 ML DISP.SYRIN IVPUSH ONE (05:44)
[2021-03-23] MEDS ORDERED: HYDROmorphone HCl 2 MG/ML VIAL ONE (05:59)
[2021-03-23 06:07] LABS: ANISOCYTOSIS 0; HELMET CELLS 0; HOWELL-JOLLY BODIES 0; MACROCYTOSIS 0; OVALOCYTE 0; PLATELET ESTIMATE NORMAL; ROULEAU 0; SICKELED CELLS 0; TARGET CELLS 0; TEAR DROP CELLS 0; TOXIC GRANULATION 0
[2021-03-23 06:49] VITALS: PULSE 90
== END 2021-03-23 06:51 | disposition left against medical advice (07) ==
LOC: JER 02:04
PROC: 3E0333Z Introduction of Anti-inflammatory into Peripheral Vein, Percutaneous Approach (ICD-10-PCS; principal; 2021-03-23)
PROC: 3E033NZ Introduction of Analgesics, Hypnotics, Sedatives into Peripheral Vein, Percutaneous Approach (ICD-10-PCS; 2021-03-23)
PROC: 3E033NZ Introduction of Analgesics, Hypnotics, Sedatives into Peripheral Vein, Percutaneous Approach (ICD-10-PCS; 2021-03-23)
PROC: 3E03329 Introduction of Other Anti-infective into Peripheral Vein, Percutaneous Approach (ICD-10-PCS; 2021-03-23)
PROC: 3E03329 Introduction of Other Anti-infective into Peripheral Vein, Percutaneous Approach (ICD-10-PCS; 2021-03-23)
PROC: 3E033GC Introduction of Other Therapeutic Substance into Peripheral Vein, Percutaneous Approach (ICD-10-PCS; 2021-03-23)
DX: K52.9 Noninfective gastroenteritis and colitis, unspecified (principal); R10.31 Right lower quadrant pain
CPT/HCPCS: 36415; 74177-TC; 80053; 83605; 83690; 85025; 85610; 85730; 86850; 86900; 86901; 99285-25; J0131